=== PATIENT | male | born 1955 | race Caucasian/White ===

== ENCOUNTER 2023-02-02 07:31 | Outpatient (CLI) | payer MEDICARE ==
[2023-02-02] MEDS ORDERED: Iopamidol 370 76% 100 ML VIAL ONE (13:47)
== END 2023-02-02 07:32 | disposition home or self-care (01) ==
LOC: CT 07:31
PROVIDERS: ATTEND Family Medicine
DX: D18.03 Hemangioma of intra-abdominal structures (principal)
CPT/HCPCS: 74178; 82565; Q9967

== ENCOUNTER 2024-04-21 09:25 | Inpatient (IN) | payer MEDICARE ==
[2024-04-21] MEDS ORDERED: Ondansetron PF 4 MG/2 ML Vial ONE (09:52)
[2024-04-21 10:07] LABS: #Basophils 0.07 10x3/uL (0.0-0.2); %Basophils 0.8 % (0.0-1.0); %Eosinophils 3.5 % (0.0-10.0); %Lymphocytes 22.3 % (21.0-51.0); %Monocytes 5.2 % (0.0-10.0); %Neutrophils 67.5 % (42.0-75.0); Hematocrit 45.5 % (42.0-52.0); Hemoglobin 14.7 g/dL (14.0-18.0); Mean Corpuscular HGB CONC 32.3 g/dL (32.0-36.0); Mean Corpuscular Hemoglobin 32.1 pg (27.0-31.0); Mean Corpuscular Volume 99.3 fL (78.0-98.0); Mean Platelet Volume 9.9 fL (7.4-10.4); Platelet Count 285 10x3/uL (130-400); RBC Distribution Width 12.7 % (11.5-14.5); Red Blood Cell (RBC) Count 4.58 mill/uL (4.70-6.10)
[2024-04-21 10:13] LABS: Actual Bicarbonate (HCO3v) 18.7 mEq/L (22-28); Analyzer IN Cardio ER; Base Excess -8.2 mEq/L (-2.0 to +3.0); Calcium, Ionized (venous) 1.17 mmol/L (1.16-1.32); Chloride (VBG) 101 mmol/L (98-106); Hematocrit-VBG 44 % (42.0-52.0); Hemoglobin (Hb) 15.1 g/dL (12.6-17.4); Sodium 143 mmol/L (133-146); pH (venous) 7.255 (7.32-7.43)
[2024-04-21 10:33] LABS: ALT (SGPT) 50 U/L (8-55); AST (SGOT) 49 U/L (5-34); Albumin 4.1 g/dL (3.4-4.8); Alkaline Phosphatase 134 U/L (40-110); Anion Gap 24 mmol/L (10-20); BUN (Urea Nitrogen) 24 mg/dL (8.4-25.7); Calc. Creatinine Clearance 0 mL/min (70-130); Calcium 9.6 mg/dL (7.8-10.44); Carbon Dioxide 18 mmol/L (23-31); Chloride 104 mmol/L (98-107); Estimated GFR 86; Glucose 170 mg/dL (80-115); Lipase 7 U/L (8-78); Protein, Total 7.1 g/dL (5.8-8.1); Sodium 142 mmol/L (136-145)
[2024-04-21] MEDS ORDERED: Morphine 4 MG/ML VIAL ONE (10:37)
[2024-04-21] MEDS ORDERED: INSULIN REGULAR IN 0.9 % NACL 100 ML ONE (11:58)
[2024-04-21] MEDS ORDERED: NS 0.9% w/ 20 MEQ KCL 1,000 ML ONE (12:01)
[2024-04-21] MEDS ORDERED: Acetaminophen 325 MG TAB PO PRN (12:12)
[2024-04-21] MEDS ORDERED: NS 0.9% w/ 20 MEQ KCL 1,000 ML IV PRN ×2 (12:12)
[2024-04-21] MEDS ORDERED: Dextrose 50% Abboject 50 ML SYRINGE SLOW IVP PRN (12:12)
[2024-04-21] MEDS ORDERED: Electrolyte Replacement Protocol 1 EACH IVPB SCH (12:12)
[2024-04-21] MEDS ORDERED: Sodium Chloride 0.9% 1,000 ML IV PRN ×4 (12:12)
[2024-04-21] MEDS ORDERED: Dextrose 5 %-0.45 % NaCl 1,000 ML IV PRN (12:12)
[2024-04-21] MEDS ORDERED: INSULIN REGULAR IN 0.9 % NACL 100 ML IVPB SCH (12:15)
[2024-04-21 12:17] LABS: Bacteria/HPF None Seen HPF (None Seen); Bilirubin Negative (Negative); Blood, Urine Negative (Negative); CAUTI Indications for Culture Pelvic or flank pain; Clarity Clear (Clear); Glucose, Urine (Dipstick) Greater than 1000 mg/dL (Negative); Ketone, Urine 40 mg/dL (Negative); Leukocyte Negative Leu/uL (Negative); Nitrite Negative (Negative); Protein, Urine (Dipstick) 10 mg/dL (Neg-Trace); RBC/HPF 0-3 HPF (0-3); Specific Gravity, Urine 1.048 (1.002-1.036); Squamous Epithelial None Seen HPF (0-3); Urobilinogen Normal mg/dL (Less than 2); WBC/HPF 0-3 HPF (0-3)
[2024-04-21 12:26] LABS: Urine Culture Reflex No No
[2024-04-21] MEDS ORDERED: D5 1/2 NS w/20 mEq KCL 1,000 ML ONE (12:31)
[2024-04-21] MEDS ORDERED: Lorazepam 1 MG TAB PO PRN (12:35)
[2024-04-21] MEDS ORDERED: Lorazepam 2 MG/ML VIAL IM PRN (12:35)
[2024-04-21] MEDS ORDERED: Electrolyte Replacement Protocol FS PRN (12:45)
[2024-04-21] MEDS ORDERED: Iopamidol-370 76% 500 ML MDV (1 ML CHARGE) ONE (12:57)
[2024-04-21 13:37] LABS: Troponin I 0.106 ng/mL (< 0.028)
[2024-04-21] MEDS: Folic Acid 1 MG TAB PO SCH (14:30)
[2024-04-21] MEDS: D5 1/2 NS w/20 mEq KCL 1,000 ML IV PRN (14:30)
[2024-04-21] MEDS: Multivit, Therapeutic 1 TAB PO SCH (14:30)
[2024-04-21] MEDS: Ondansetron PF 4 MG/2 ML Vial IVP PRN (14:30)
[2024-04-21] MEDS: Thiamine HCl 200 MG/2 ML VIAL SLOW IVP SCH (14:30)
[2024-04-21 14:41] LABS: Lactic Acid 2.65 mmol/L (0.5-2.2)
[2024-04-21 14:51] VITALS: BMI 25.0
[2024-04-21] MEDS: Promethazine HCl 12.5 MG in Sodium Chloride 0.9% 50 ML IVPB PRN (16:05)
[2024-04-21 16:16] LABS: Troponin I 0.287 ng/mL (< 0.028)
[2024-04-21 16:43] LABS: Anion Gap 26 mmol/L (10-20); BUN (Urea Nitrogen) 24 mg/dL (8.4-25.7); Calc. Creatinine Clearance 79 mL/min (70-130); Calcium 8.6 mg/dL (7.8-10.44); Carbon Dioxide 10 mmol/L (23-31); Chloride 109 mmol/L (98-107); Estimated GFR 90; Glucose 234 mg/dL (80-115); Potassium 4.4 mmol/L (3.5-5.1); Sodium 141 mmol/L (136-145)
[2024-04-21] MEDS: Liothyronine Sodium 5 MCG TAB PO SCH (21:00)
[2024-04-21] MEDS ORDERED: Famotidine 20 MG TAB PO SCH (21:00)
[2024-04-21] MEDS: Zolpidem Tartrate 5 MG TAB PO SCH (21:03)
[2024-04-21] MEDS: Atorvastatin Calcium 40 MG TAB PO SCH (21:03)
[2024-04-21] MEDS: Ezetimibe 10 MG TAB PO SCH (21:03)
[2024-04-21 21:24] LABS: Anion Gap 18 mmol/L (10-20); BUN (Urea Nitrogen) 19 mg/dL (8.4-25.7); Calc. Creatinine Clearance 88 mL/min (70-130); Calcium 8.7 mg/dL (7.8-10.44); Carbon Dioxide 16 mmol/L (23-31); Chloride 112 mmol/L (98-107); Estimated GFR 96; Glucose 192 mg/dL (80-115); Potassium 4.4 mmol/L (3.5-5.1); Sodium 142 mmol/L (136-145)
[2024-04-22 01:39] LABS: Anion Gap 15 mmol/L (10-20); BUN (Urea Nitrogen) 17 mg/dL (8.4-25.7); Calc. Creatinine Clearance 74 mL/min (70-130); Calcium 8.8 mg/dL (7.8-10.44); Carbon Dioxide 19 mmol/L (23-31); Chloride 109 mmol/L (98-107); Estimated GFR 82; Glucose 186 mg/dL (80-115); Potassium 4.2 mmol/L (3.5-5.1); Sodium 139 mmol/L (136-145)
[2024-04-22 02:52] LABS: #Basophils Less than 0.03 10x3/uL (0.0-0.2); #Eosinophils Less than 0.03 10x3/uL (0.0-0.7); %Basophils 0.2 % (0.0-1.0); %Lymphocytes 4.3 % (21.0-51.0); %Monocytes 9.3 % (0.0-10.0); %Neutrophils 85.9 % (42.0-75.0); Hematocrit 38.5 % (42.0-52.0); Hemoglobin 13.1 g/dL (14.0-18.0); Mean Corpuscular Hemoglobin 32.4 pg (27.0-31.0); Mean Corpuscular Volume 95.3 fL (78.0-98.0); Mean Platelet Volume 9.9 fL (7.4-10.4); Platelet Count 202 10x3/uL (130-400); RBC Distribution Width 13.3 % (11.5-14.5); Red Blood Cell (RBC) Count 4.04 mill/uL (4.70-6.10)
[2024-04-22 03:39] LABS: Anion Gap 15 mmol/L (10-20); BUN (Urea Nitrogen) 17 mg/dL (8.4-25.7); Calc. Creatinine Clearance 77 mL/min (70-130); Calcium 8.6 mg/dL (7.8-10.44); Carbon Dioxide 19 mmol/L (23-31); Chloride 109 mmol/L (98-107); Estimated GFR 88; Glucose 193 mg/dL (80-115); Potassium 4.1 mmol/L (3.5-5.1); Sodium 139 mmol/L (136-145)
[2024-04-22] MEDS: Levothyroxine Sodium 100 MCG TAB PO SCH (06:23)
[2024-04-22] MEDS: Liothyronine Sodium 5 MCG TAB PO SCH (08:09)
[2024-04-22] MEDS: Pantoprazole DR 40 MG TAB PO SCH (08:10)
[2024-04-22] MEDS: Insulin Glargine 30 UNITS/0.3 ML VIAL SC SCH (08:10)
[2024-04-22] MEDS: Clopidogrel Bisulfate 75 MG TAB PO SCH (08:10)
[2024-04-22] MEDS: Folic Acid 1 MG TAB PO SCH (08:23)
[2024-04-22] MEDS: Enoxaparin 40 MG (0.4 mL) SYRINGE SC SCH (08:23)
[2024-04-22] MEDS: Losartan 25 MG TAB PO SCH (08:23)
[2024-04-22] MEDS: CO Q-10 CAPSULE 100 MG PO SCH (08:24)
[2024-04-22] MEDS: Multivit, Therapeutic 1 TAB PO SCH (08:24)
[2024-04-22] MEDS ORDERED: Enoxaparin 30 MG (0.3 mL) SYRINGE SC SCH (09:00)
[2024-04-22] MEDS: Metoclopramide HCl 10 MG (2 mL) VIAL IVP PRN (09:17)
[2024-04-22 09:47] LABS: Anion Gap 13 mmol/L (10-20); BUN (Urea Nitrogen) 14 mg/dL (8.4-25.7); Calc. Creatinine Clearance 82 mL/min (70-130); Calcium 9.2 mg/dL (7.8-10.44); Carbon Dioxide 25 mmol/L (23-31); Chloride 107 mmol/L (98-107); Estimated GFR 91; Glucose 128 mg/dL (80-115); Potassium 4.1 mmol/L (3.5-5.1); Sodium 141 mmol/L (136-145)
[2024-04-22 09:59] LABS: Troponin I 9.467 ng/mL (< 0.028)
[2024-04-22] MEDS: Sodium Chloride 0.9% 1,000 ML IV SCH (11:01)
[2024-04-22] MEDS ORDERED: Lorazepam 1 MG TAB PO PRN (12:35)
[2024-04-22] MEDS ORDERED: Glucagon 1 MG/ML KIT IM PRN (15:32)
[2024-04-22] MEDS ORDERED: Dextrose 50% Abboject 50 ML SYRINGE SLOW IVP PRN (15:32)
[2024-04-22] MEDS ORDERED: Dextrose 5% in Water 1,000 ML IV PRN (15:32)
[2024-04-22] MEDS: Melatonin 3 MG TAB PO SCH (21:44)
[2024-04-22] MEDS: traZODone HCl 50 MG TAB PO SCH (21:44)
[2024-04-23 04:20] LABS: #Basophils Less than 0.03 10x3/uL (0.0-0.2); #Eosinophils Less than 0.03 10x3/uL (0.0-0.7); %Basophils 0.2 % (0.0-1.0); %Lymphocytes 6.6 % (21.0-51.0); %Monocytes 7.5 % (0.0-10.0); %Neutrophils 85.4 % (42.0-75.0); Hematocrit 41.4 % (42.0-52.0); Hemoglobin 13.7 g/dL (14.0-18.0); Mean Corpuscular HGB CONC 33.1 g/dL (32.0-36.0); Mean Corpuscular Hemoglobin 32.2 pg (27.0-31.0); Mean Corpuscular Volume 97.4 fL (78.0-98.0); Mean Platelet Volume 9.9 fL (7.4-10.4); Platelet Count 175 10x3/uL (130-400); RBC Distribution Width 13.5 % (11.5-14.5); Red Blood Cell (RBC) Count 4.25 mill/uL (4.70-6.10)
[2024-04-23 04:43] LABS: Anion Gap 16 mmol/L (10-20); BUN (Urea Nitrogen) 13 mg/dL (8.4-25.7); Calc. Creatinine Clearance 92 mL/min (70-130); Calcium 8.8 mg/dL (7.8-10.44); Carbon Dioxide 19 mmol/L (23-31); Chloride 107 mmol/L (98-107); Estimated GFR 96; Glucose 132 mg/dL (80-115); Potassium 4.3 mmol/L (3.5-5.1); Sodium 138 mmol/L (136-145)
[2024-04-23] MEDS: Levothyroxine Sodium 100 MCG TAB PO SCH (05:04)
[2024-04-23] MEDS: Insulin Regular, Human 100 UNIT/ML 10 ML VIAL SC PRN (06:18)
[2024-04-23] MEDS: Empagliflozin 25 MG TAB PO SCH (08:41)
[2024-04-23 09:15] LABS: Critical Call Chem Troponin I RESULT DECREASING; Troponin I 5.462 ng/mL (< 0.028)
[2024-04-23] MEDS ORDERED: Lorazepam 1 MG TAB PO PRN (12:35)
[2024-04-24 06:39] LABS: Anion Gap 21 mmol/L (10-20); BUN (Urea Nitrogen) 14 mg/dL (8.4-25.7); Calc. Creatinine Clearance 100 mL/min (70-130); Calcium 8.6 mg/dL (7.8-10.44); Carbon Dioxide 19 mmol/L (23-31); Chloride 101 mmol/L (98-107); Estimated GFR 99; Glucose 123 mg/dL (80-115); Potassium 3.7 mmol/L (3.5-5.1); Sodium 137 mmol/L (136-145)
[2024-04-24 08:17] VITALS: TEMP 98.2
[2024-04-24] MEDS: Thiamine 100 MG TAB PO SCH (09:14)
[2024-04-24] MEDS ORDERED: Lorazepam 0.5 MG TAB PO PRN (12:35)
== END 2024-04-24 14:30 | disposition home or self-care (01) | DRG 280 ==
LOC: ERS 09:25 → IMCU/EMU 14:35
PROVIDERS: ADMIT Internal Medicine; ATTEND Hospitalist
DX: I21.4 Non-ST elevation (NSTEMI) myocardial infarction (principal); E10.10 Type 1 diabetes mellitus with ketoacidosis without coma; E03.9 Hypothyroidism, unspecified; I25.10 Atherosclerotic heart disease of native coronary artery without angina pectoris; I10 Essential (primary) hypertension; F10.20 Alcohol dependence, uncomplicated; F32.A Depression, unspecified; E78.5 Hyperlipidemia, unspecified; Z79.4 Long term (current) use of insulin; I34.0 Nonrheumatic mitral (valve) insufficiency; Z95.1 Presence of aortocoronary bypass graft; Z90.49 Acquired absence of other specified parts of digestive tract; Z98.890 Other specified postprocedural states; Z79.899 Other long term (current) drug therapy; Z86.73 Personal history of transient ischemic attack (TIA), and cerebral infarction without residual deficits; Z98.49 Cataract extraction status, unspecified eye
CPT/HCPCS: 36415; 36416; 71045; 71275; 76705; 80048; 80053; 81001; 82010; 82805; 83605; 83690; 84484; 85025; 93005; 96360; 96361; 96374; 96375; J1650; J1815; J2272; J2405; J2550; J2765; J3411; J3480; J7030; Q9967

== ENCOUNTER 2025-03-15 16:04 | Inpatient (IN) | payer MEDICARE ==
[~2025-03-15 16:04] MED LIST: Iopamidol-370 76% 500 ML MDV (1 ML CHARGE) ONE
[2025-03-15] MEDS ORDERED: Ondansetron PF 4 MG/2 ML Vial ONE (17:55)
[2025-03-15 18:01] LABS: #Basophils Less than 0.03 10x3/uL (0.0-0.2); #Eosinophils Less than 0.03 10x3/uL (0.0-0.7); #Monocytes 0.65 10x3/uL (0.11-0.59); #Neutrophils 12.87 10x3/uL (1.40-6.50); %Basophils 0.1 % (0.0-1.0); %Eosinophils 0.0 % (0.0-10.0); %Lymphocytes 2.5 % (21.0-51.0); %Monocytes 4.7 % (0.0-10.0); %Neutrophils 92.2 % (42.0-75.0); Hematocrit 41.6 % (42.0-52.0); Hemoglobin 14.3 g/dL (14.0-18.0); Mean Corpuscular Hemoglobin 32.8 pg (27.0-31.0); Mean Corpuscular Volume 95.4 fL (78.0-98.0); Platelet Count 194 10x3/uL (130-400); Red Blood Cell (RBC) Count 4.36 mill/uL (4.70-6.10); White Blood Cell (WBC) Count 13.95 10x3/uL (4.8-10.8)
[2025-03-15 18:06] LABS: Actual Bicarbonate (HCO3v) 20.7 mEq/L (22-28); Base Excess -6.3 mEq/L (-2.0 to +3.0); Calcium, Ionized (venous) 1.17 mmol/L (1.16-1.32); Chloride (VBG) 101 mmol/L (98-106); Hematocrit-VBG 44 % (42.0-52.0); Hemoglobin (Hb) 15.1 g/dL (12.6-17.4); Potassium (VBG) 4.65 mmol/L (3.70-5.30); Sodium 142 mmol/L (133-146)
[2025-03-15 18:21] LABS: ALT (SGPT) 33 U/L (Less than 45); AST (SGOT) 43 U/L (11-34); Albumin 4.3 g/dL (3.1-4.5); Alkaline Phosphatase 124 U/L (40-110); Anion Gap 26 mmol/L (10-20); BUN (Urea Nitrogen) 26 mg/dL (8.4-25.7); Bilirubin, Total 0.7 mg/dL (0.3-1.2); Calc. Creatinine Clearance 0 mL/min (70-130); Calcium 9.6 mg/dL (7.8-10.44); Carbon Dioxide 18 mmol/L (23-31); Chloride 102 mmol/L (98-107); Globulin 3.0 g/dL (2.4-3.5); Glucose 162 mg/dL (80-115); Lipase Less than 4 U/L (8-78); Potassium 4.3 mmol/L (3.5-5.1); Sodium 142 mmol/L (136-145)
[2025-03-15 19:36] LABS: Bacteria/HPF None Seen HPF (None Seen); CAUTI Indications for Culture Dysuria,urgency,freq; Glucose, Urine (Dipstick) Greater than 1000 mg/dL (Negative); Leukocyte Negative Leu/uL (Negative); Protein, Urine (Dipstick) 20 mg/dL (Neg-Trace); RBC/HPF 0-3 HPF (0-3); Specific Gravity, Urine 1.024 (1.002-1.036)
[2025-03-15 19:38] LABS: Urine Culture Reflex No No
[2025-03-15] MEDS ORDERED: INSULIN REGULAR IN 0.9 % NACL 100 ML ONE ×2 (21:02→21:04)
[2025-03-15] MEDS ORDERED: D5 1/2 NS w/20 mEq KCL 1,000 ML ONE (21:02)
[2025-03-15] MEDS ORDERED: Acetaminophen 325 MG TAB PO PRN (21:46)
[2025-03-15] MEDS ORDERED: Electrolyte Replacement Protocol 1 EACH IVPB PRN (21:47)
[2025-03-15] MEDS ORDERED: D5 1/2 NS w/20 mEq KCL 1,000 ML IV PRN (21:47)
[2025-03-15] MEDS ORDERED: Dextrose 50% Abboject 50 ML SYRINGE SLOW IVP PRN (21:47)
[2025-03-15] MEDS ORDERED: NS 0.9% w/ 20 MEQ KCL 1,000 ML IV PRN ×2 (21:47)
[2025-03-15 22:10] VITALS: BMI 25.6
[2025-03-15 22:29] LABS: Anion Gap 32 mmol/L (10-20); BUN (Urea Nitrogen) 26 mg/dL (8.4-25.7); Calc. Creatinine Clearance 74 mL/min (70-130); Calcium 9.1 mg/dL (7.8-10.44); Carbon Dioxide 9 mmol/L (23-31); Chloride 103 mmol/L (98-107); Glucose 258 mg/dL (80-115); Potassium 4.6 mmol/L (3.5-5.1); Sodium 139 mmol/L (136-145)
[2025-03-15 23:07] LABS: Actual Bicarbonate (HCO3v) 22.2 mEq/L (22-28); Base Excess -1.6 mEq/L (-2.0 to +3.0); Calcium, Ionized (venous) 1.14 mmol/L (1.16-1.32); Chloride (VBG) 101 mmol/L (98-106); Hematocrit-VBG 32 % (42.0-52.0); Hemoglobin (Hb) 11.0 g/dL (12.6-17.4); Potassium (VBG) 4.14 mmol/L (3.70-5.30); Sodium 132 mmol/L (133-146)
[2025-03-15] MEDS: Potassium Chloride 20 MEQ in Premix 1 BAG IVPB SCH (23:25)
[2025-03-16] MEDS ORDERED: Sodium Bicarb 50 MEQ/50 ML Abboject 8.4% SYRINGE ONE (00:52)
[2025-03-16] MEDS: Sodium Bicarb 50 MEQ/50 ML Abboject 8.4% SYRINGE IVP SCH (01:25)
[2025-03-16] MEDS ORDERED: D5 1/2 NS w/20 mEq KCL 1,000 ML ONE (01:36)
[2025-03-16 02:05] LABS: #Basophils Less than 0.03 10x3/uL (0.0-0.2); #Eosinophils Less than 0.03 10x3/uL (0.0-0.7); #Monocytes 1.03 10x3/uL (0.11-0.59); #Neutrophils 12.97 10x3/uL (1.40-6.50); %Basophils 0.1 % (0.0-1.0); %Eosinophils 0.0 % (0.0-10.0); %Lymphocytes 4.4 % (21.0-51.0); %Monocytes 7.0 % (0.0-10.0); %Neutrophils 88.1 % (42.0-75.0); Hematocrit 38.0 % (42.0-52.0); Hemoglobin 13.0 g/dL (14.0-18.0); Mean Corpuscular Hemoglobin 32.6 pg (27.0-31.0); Mean Corpuscular Volume 95.2 fL (78.0-98.0); Platelet Count 172 10x3/uL (130-400); Red Blood Cell (RBC) Count 3.99 mill/uL (4.70-6.10); White Blood Cell (WBC) Count 14.72 10x3/uL (4.8-10.8)
[2025-03-16 02:17] LABS: Anion Gap 23 mmol/L (10-20); BUN (Urea Nitrogen) 26 mg/dL (8.4-25.7); Calc. Creatinine Clearance 73 mL/min (70-130); Calcium 8.7 mg/dL (7.8-10.44); Carbon Dioxide 16 mmol/L (23-31); Chloride 105 mmol/L (98-107); Glucose 252 mg/dL (80-115); Potassium 4.2 mmol/L (3.5-5.1); Sodium 140 mmol/L (136-145)
[2025-03-16 02:29] LABS: Actual Bicarbonate (HCO3v) 19.6 mEq/L (22-28); Base Excess -4.5 mEq/L (-2.0 to +3.0); Calcium, Ionized (venous) 1.07 mmol/L (1.16-1.32); Chloride (VBG) 103 mmol/L (98-106); Hematocrit-VBG 41 % (42.0-52.0); Hemoglobin (Hb) 14.0 g/dL (12.6-17.4); Potassium (VBG) 4.22 mmol/L (3.70-5.30); Sodium 140 mmol/L (133-146)
[2025-03-16] MEDS: Enoxaparin 80 MG (0.8 mL) SYRINGE SC SCH (03:59)
[2025-03-16] MEDS: D5 1/2 NS w/20 mEq KCL 1,000 ML IV PRN (04:02)
[2025-03-16] MEDS: INSULIN REGULAR IN 0.9 % NACL 100 ML IVPB SCH (05:47)
[2025-03-16 06:21] LABS: Anion Gap 17 mmol/L (10-20); BUN (Urea Nitrogen) 24 mg/dL (8.4-25.7); Calc. Creatinine Clearance 71 mL/min (70-130); Calcium 8.6 mg/dL (7.8-10.44); Carbon Dioxide 25 mmol/L (23-31); Chloride 103 mmol/L (98-107); Glucose 245 mg/dL (80-115); Potassium 3.8 mmol/L (3.5-5.1); Sodium 141 mmol/L (136-145)
[2025-03-16] MEDS ORDERED: Enoxaparin 40 MG (0.4 mL) SYRINGE SC SCH (09:00)
[2025-03-16 10:36] LABS: Anion Gap 16 mmol/L (10-20); BUN (Urea Nitrogen) 23 mg/dL (8.4-25.7); Calc. Creatinine Clearance 79 mL/min (70-130); Calcium 8.7 mg/dL (7.8-10.44); Carbon Dioxide 25 mmol/L (23-31); Chloride 104 mmol/L (98-107); Glucose 114 mg/dL (80-115); Potassium 3.5 mmol/L (3.5-5.1); Sodium 141 mmol/L (136-145)
[2025-03-16] MEDS: Potassium Chloride 20 MEQ in Premix 1 BAG IVPB SCH (11:35)
[2025-03-16] MEDS: Insulin Glargine 30 UNITS/0.3 ML VIAL SC SCH (13:43)
[2025-03-16] MEDS ORDERED: Glucagon 1 MG/ML KIT IM PRN (15:30)
[2025-03-16] MEDS: Metoprolol Succinate XL 50 MG ER.TAB PO SCH (20:27)
[2025-03-16] MEDS: Mupirocin 1 GM TUBE NASAL DECOLOIZATION TP SCH (20:27)
[2025-03-16] MEDS: Ezetimibe 10 MG TAB PO SCH (20:27)
[2025-03-16] MEDS: Aspirin 81 mg Enteric Coated Tablet PO SCH (20:27)
[2025-03-16] MEDS: Ondansetron PF 4 MG/2 ML Vial IVP PRN (20:39)
[2025-03-17] MEDS: Levothyroxine 175 MCG TAB PO SCH (04:22)
[2025-03-17] MEDS: Pantoprazole 40 MG DR.TAB PO SCH (09:02)
[2025-03-17] MEDS: CO Q-10 CAPSULE 100 MG PO SCH (09:03)
[2025-03-17] MEDS: Losartan 25 MG TAB PO SCH (09:03)
[2025-03-17 11:34] VITALS: TEMP 98.9
[2025-03-17 14:20] LABS: Anion Gap 21 mmol/L (10-20); BUN (Urea Nitrogen) 19 mg/dL (8.4-25.7); Calc. Creatinine Clearance 104 mL/min (70-130); Calcium 8.7 mg/dL (7.8-10.44); Carbon Dioxide 22 mmol/L (23-31); Chloride 99 mmol/L (98-107); Glucose 294 mg/dL (80-115); Potassium 4.5 mmol/L (3.5-5.1); Sodium 137 mmol/L (136-145)
[2025-03-17 16:29] VITALS: BP 155/73
== END 2025-03-17 18:38 | disposition home or self-care (01) | DRG 637 ==
LOC: ERS 16:04 → ERHOLD 21:34 → IMCU/EMU 03-16 02:10 → OBS 03-16 19:16
PROVIDERS: ADMIT Internal Medicine; ATTEND Student in an Organized Health Care Education/Training Program
DX: E10.10 Type 1 diabetes mellitus with ketoacidosis without coma (principal); I21.A1 Myocardial infarction type 2; I10 Essential (primary) hypertension; E03.9 Hypothyroidism, unspecified; Z86.73 Personal history of transient ischemic attack (TIA), and cerebral infarction without residual deficits; I25.10 Atherosclerotic heart disease of native coronary artery without angina pectoris; Z98.890 Other specified postprocedural states; Z79.899 Other long term (current) drug therapy; I45.10 Unspecified right bundle-branch block; Z95.1 Presence of aortocoronary bypass graft; E86.0 Dehydration; Z79.4 Long term (current) use of insulin; Z79.890 Hormone replacement therapy
CPT/HCPCS: 36415; 36416; 71045; 74177; 80048; 80053; 81001; 82010; 82805; 83605; 83690; 84484; 85025; 87426; 93005; 93010; 93306; 96361; 96365; 96366; 96367; 96368; 96375; J1650; J1815; J2405; J2543; J2550; J3480; J7070; J7120; Q9967

== ENCOUNTER 2025-06-18 08:00 | Outpatient (CLI) | payer MEDICARE | END 2025-06-18 08:01 | disposition home or self-care (01) | LOC: PET 08:00 | PROVIDERS: ATTEND Radiology Radiation Oncology | DX: C61 Malignant neoplasm of prostate (principal) | CPT/HCPCS: 78815; A9595 ==